=== PATIENT | female | born 1975 | race Caucasian/White ===

== ENCOUNTER 2021-04-20 14:27 | Emergency (ER) | payer BC ==
[~2021-04-20] VITALS: Ht 162.6 cm; Wt 64.5 kg
[2021-04-20] MEDS ORDERED: WELLBUTRIN XL300 MG (15:48)
[2021-04-20 16:00] LABS: URINE BILIRUBIN - DIPSTICK NEGATIVE (NEGATIVE); URINE BLOOD DIPSTICK MODERATE (NEGATIVE); URINE COLOR YELLOW; URINE GLUCOSE - DIPSTICK NEGATIVE (NEGATIVE); URINE KETONE NEGATIVE (NEGATIVE); URINE LEUK ESTERASE NEGATIVE (NEGATIVE); URINE PH 6.5 (4.5-8.0); URINE PROTEIN - DIPSTICK NEGATIVE (NEG-TRACE); URINE SPECIFIC GRAVITY 1.015; URINE UROBILINOGEN - DIPSTICK 0.2 E.U./dL (0.2)
[2021-04-20 16:05] LABS: URINE NITRITE - DIPSTICK POSITIVE (Negative)
[2021-04-20 16:17] LABS: URINE BACTERIA MODERATE hpf; URINE SQUAMOUS EPITHELIAL CELL MODERATE EPI/hpf (0-FEW); URINE WBC 0-2 WBC/hpf (0-5)
[2021-04-20] MEDS ORDERED: HYDROCO/APAP1 TA9 PO (16:49)
[2021-04-20] MEDS ORDERED: CEPHALEXIN500 M1 PO (16:49)
[2021-04-20] MEDS ORDERED: BACTRIM DS1 TAB PO (16:49)
[2021-04-20 17:00] VITALS: BP 122/75
== END 2021-04-20 17:00 | disposition home or self-care (01) | DRG 761 ==
LOC: ED 14:27
PROVIDERS: Family Medicine
PROC: 0U9L0ZZ Drainage of Vestibular Gland, Open Approach (ICD-10-PCS; principal; 2021-04-20)
DX: N75.0 Cyst of Bartholin's gland (principal)